=== PATIENT | female | born 1980 | race Caucasian/White ===

== ENCOUNTER 2018-01-31 13:35 | Emergency (ER) | payer OTHER ==
[~2018-01-31] VITALS: Ht 160 cm; Wt 78.5 kg
[~2018-01-31 13:35] MED LIST: PRENATAL VITAMI1 T10 PO
[2018-01-31 13:50] VITALS: Ht 160 cm; Wt 78.5 kg
[2018-01-31 16:10] VITALS: BP 124/79
== END 2018-01-31 16:10 | disposition home or self-care (01) ==
LOC: ED 13:35
DX: M75.92 Shoulder lesion, unspecified, left shoulder (principal); G43.909 Migraine, unspecified, not intractable, without status migrainosus
CPT/HCPCS: J1885